=== PATIENT | male | born 1965 | race Caucasian/White ===

== ENCOUNTER 2022-02-22 13:38 | Outpatient (CLI) | payer BC, SELFPAY | END 2022-02-22 13:39 | disposition home or self-care (01) | LOC: WOUND 13:39 | PROVIDERS: Visit Provider Nurse Practitioner Family | DX: Z43.3 Encounter for attention to colostomy (principal); L24.B1 Irritant contact dermatitis related to digestive stoma or fistula; T81.31XA Disruption of external operation (surgical) wound, not elsewhere classified, initial encounter; C20 Malignant neoplasm of rectum | CPT/HCPCS: 97597; 99212 ==

== ENCOUNTER 2022-03-07 11:00 | Outpatient (RCR) | payer BC, SELFPAY ==
[2022-02-19 15:09] LABS: Basophils Absolute Auto 0.04 K/uL (0.00-0.30); Basophils Percent Auto 0.6 % (0.0-3.0); Eosinophils Absolute Auto 0.21 K/uL (0.00-0.50); Hematocrit 40.5 % (37.0-53.0); Hemoglobin* 13.3 gm/dL (13.5-17.5); Immature Granulocytes Abs Auto 0.02 K/uL (0.00-0.30); Lymphocytes Percent Auto 17.3 % (20-44); Mean Corpuscular HGB Conc 33 gm/dL (32-36); Mean Corpuscular Hemoglobin 25 pg (26-34); Mean Corpuscular Volume 76 fL (80-100); Monocytes Percent Auto 16.7 % (0.0-11.0); Neutrophils Absolute Auto 4.42 K/uL (1.7-7.0); Neutrophils Percent Auto 62.1 % (42.0-72.0); Platelet Count* 273 K/uL (140-440); RDW Coefficient of Variation % 16.2 % (11.5-15.5); Red Blood Count 5.36 m/uL (4.30-5.90); White Blood Count* 7.11 K/uL (4.50-11.00)
[2022-02-19 15:21] LABS: Albumin* 4.2 g/dL (3.3-5.0); Chloride* 100 mmol/L (96-114); Potassium* 3.9 mmol/L (3.6-5.1); Sodium* 134 mmol/L (135-149)
[2022-02-19 15:24] LABS: Alanine Aminotransferase* 40 U/L (4-50); Alkaline Phosphatase* 92 U/L (40-150); Aspartate Amino Transferase* 43 U/L (12-35); Bilirubin Total* 1.6 mg/dL (0.1-1.5); Blood Urea Nitrogen* 11 mg/dL (7-30); Carbon Dioxide* 27 mmol/L (20-32); Creatinine* 0.8 mg/dL (0.5-1.5); Estimated Glomerular Filt Rate 102.58; Glucose* 182 mg/dL (60-115); Total Protein* 7.5 g/dL (6.0-8.3)
[2022-02-19 15:25] LABS: Calcium* 9.2 mg/dL (8.4-10.6)
[2022-02-19 22:10] LABS: Slide Review Reflex No
[2022-02-20 08:52] VITALS: BP 123/79; PULSE 93; RESP 16; TEMP 35.9; O2SAT 97
[2022-02-20] MEDS: dexAMETHasone 20 MG in 0.9 % SODIUM CHLORIDE 100 ml 100 ML 408 MG IVPB (10:19)
[2022-02-20] MEDS: PALONOSETRON 0.25 MG/5 ML inj IV (10:19)
[2022-02-22 12:38] VITALS: BP 114/79; PULSE 72; RESP 16; TEMP 36.1; O2SAT 97
[2022-02-22] MEDS: SODIUM CHLORIDE 0.9 % (FLUSH) 10 ML SYRINGE IVF (14:55)
[2022-02-22] MEDS: HEPARIN 500 UNIT/5 ML SYRINGE IVF (14:55)
--- NOTE | 2022-03-01 17:57 | ONC.NURNOTE ---
Authorization: User: Kendra Saucedo Date: 12/28/21 13:02 Type: Eligibility Determination Note... Received request for prior auth for Flourouracil (J9190), Leucovorin (J0640), Oxaliplatin (J9263) and Aloxi (J2469). Per [place], Flourouracil (J9190), Leucovorin (J0640), Oxaliplatin (J9263) hav ebeen approved 12/27/2021-. Auth#[id number] Aloxi is pending additional information. Amendment 1 - Kendra Saucedo - 12/28/21 @ [address] Wing is valid 12/27/2021-08/30/2022 User: Kendra Saucedo Date: 01/01/22 10:39 Type: Eligibility Determination Note... Request for Aloxi (J2469) has been approved from by Theo on behalf of [facility], 12/27/2021-01/02/2023. Max daily units is 10 (25MCG). REf #[id number]
[2022-03-05 08:36] VITALS: BP 124/83; PULSE 73; RESP 16; TEMP 36; O2SAT 98
[2022-03-05 08:54] LABS: Basophils Absolute Auto 0.02 K/uL (0.00-0.30); Basophils Percent Auto 0.4 % (0.0-3.0); Eosinophils Absolute Auto 0.18 K/uL (0.00-0.50); Eosinophils Percent Auto 3.6 % (0.0-7.0); Hemoglobin* 12.8 gm/dL (13.5-17.5); Immature Granulocytes Abs Auto 0.02 K/uL (0.00-0.30); Lymphocytes Absolute Auto 1.28 K/uL (0.90-2.90); Lymphocytes Percent Auto 25.3 % (20-44); Mean Corpuscular HGB Conc 33 gm/dL (32-36); Mean Corpuscular Hemoglobin 25 pg (26-34); Mean Corpuscular Volume 76 fL (80-100); Monocytes Percent Auto 19.2 % (0.0-11.0); Neutrophils Absolute Auto 2.58 K/uL (1.7-7.0); Neutrophils Percent Auto 51.1 % (42.0-72.0); Platelet Count* 202 K/uL (140-440); RDW Coefficient of Variation % 16.8 % (11.5-15.5); Red Blood Count 5.14 m/uL (4.30-5.90); White Blood Count* 5.05 K/uL (4.50-11.00)
[2022-03-05 08:57] LABS: Slide Review Reflex No
[2022-03-05 09:07] LABS: Albumin* 3.8 g/dL (3.3-5.0); Chloride* 102 mmol/L (96-114); Sodium* 133 mmol/L (135-149)
[2022-03-05 09:08] LABS: Potassium* 4.1 mmol/L (3.6-5.1)
[2022-03-05 09:10] LABS: Alkaline Phosphatase* 93 U/L (40-150); Aspartate Amino Transferase* 37 U/L (12-35); Bilirubin Total* 0.8 mg/dL (0.1-1.5); Blood Urea Nitrogen* 10 mg/dL (7-30); Carbon Dioxide* 24 mmol/L (20-32); Creatinine* 0.7 mg/dL (0.5-1.5); Estimated Glomerular Filt Rate 107 ml/min; Glucose* 113 mg/dL (60-115); Total Protein* 6.8 g/dL (6.0-8.3)
[2022-03-05 09:11] LABS: Alanine Aminotransferase* 36 U/L (4-50); Calcium* 8.8 mg/dL (8.4-10.6)
[2022-03-05] MEDS: PALONOSETRON 0.25 MG/5 ML inj IV (09:43)
[2022-03-05] MEDS: SODIUM CHLORIDE 0.9 % (FLUSH) 10 ML SYRINGE IVF (09:43)
[2022-03-05] MEDS: dexAMETHasone 20 MG in 0.9 % SODIUM CHLORIDE 100 ml 100 ML 408 MG IVPB (09:43)
[2022-03-07] MEDS: SODIUM CHLORIDE 0.9 % (FLUSH) 10 ML SYRINGE IVF (11:24)
[2022-03-07 11:25] VITALS: BP 146/78; PULSE 87; RESP 16; TEMP 36.9; O2SAT 97
[2022-03-07] MEDS: HEPARIN 500 UNIT/5 ML SYRINGE IVF (11:25)
== END 2022-03-17 23:59 | disposition home or self-care (01) ==
LOC: CCIC 11:00
PROVIDERS: Clinical Nurse Specialist; PCP Family Medicine; Visit Provider Internal Medicine Hematology & Oncology
DX: C18.9 Malignant neoplasm of colon, unspecified (principal)
CPT/HCPCS: 36415; 36591; 80053; 85025; 96368; 96376; 96413; 96415; 96416; 99211; 99212; 99215; J0640; J1100; J1642; J2469; J7050; J9190; J9263

== ENCOUNTER 2022-03-08 13:46 | Outpatient (CLI) | payer BC, SELFPAY | END 2022-03-08 13:47 | disposition home or self-care (01) | LOC: WOUND 13:47 | PROVIDERS: Visit Provider Nurse Practitioner Family | DX: Z43.3 Encounter for attention to colostomy (principal); L24.B1 Irritant contact dermatitis related to digestive stoma or fistula; T81.31XA Disruption of external operation (surgical) wound, not elsewhere classified, initial encounter | CPT/HCPCS: 99213 ==

== ENCOUNTER 2022-03-15 07:51 | Outpatient (CLI) | payer BC, SELFPAY | END 2022-03-15 07:52 | disposition home or self-care (01) | LOC: WOUND 07:51 | PROVIDERS: Visit Provider Nurse Practitioner Family | DX: Z43.3 Encounter for attention to colostomy (principal); L24.B1 Irritant contact dermatitis related to digestive stoma or fistula; T81.31XA Disruption of external operation (surgical) wound, not elsewhere classified, initial encounter | CPT/HCPCS: 99213 ==

== ENCOUNTER 2022-04-08 08:09 | Outpatient (CLI) | payer BC, SELFPAY ==
--- NOTE | 2022-04-08 09:00 | CRLHL7_ITS ---
For Patients: As a result of the Century Cures Act, medical imaging exams and procedure reports are released immediately into your electronic medical record. You may view this report before your referring provider. If you have questions, please contact your health care provider. Indication: MALIGNANT NEOPLASM OF THE COLON Technique: Postcontrast CT chest, abdomen and pelvis. 117 cc Isovue 370 intravenous contrast. Please note that all CT scans at this facility use dose modulation, iterative reconstruction, and/or weight-based dosing when appropriate to reduce radiation dose to as low as reasonably achievable. Comparison: 01/18/2022, 12/31/2021 Findings: In the chest, no pulmonary nodule. No infiltrate. No edema or effusion. Dependent atelectasis. Right-sided Port-A-Cath. No adenopathy. Mild bilateral gynecomastia. No fracture. In the abdomen, mild fatty infiltration of the liver. No intrahepatic masses. Normal gallbladder and spleen. Normal adrenal glands, pancreas, kidneys and ureters. No suspicious retroperitoneal or mesenteric lymph nodes. Postop changes of midline abdominal incision with small fat filled supraumbilical hernias. A small amount of postoperative fluid is located within the deep subcutaneous incision in the infraumbilical region. Left lower quadrant ostomy. No bowel obstruction. Normal stomach and small bowel. Normal appendix. In the pelvis, the bladder is normal. Prostate not particularly enlarged. No pelvic or inguinal adenopathy. Postop changes of partial colectomy. No fracture. Impression: No evidence of metastatic disease. Please note that all CT scans at this facility use dose modulation, iterative reconstruction, and/or weight-based dosing when appropriate to reduce radiation dose to as low as reasonably achievable. Dictated by Oracio Atkinson MD @ 04/08/2022 12:08:24 PM (Electronically Signed)
== END 2022-04-08 08:10 | disposition home or self-care (01) ==
PROVIDERS: PCP Family Medicine; Visit Provider Clinical Nurse Specialist
DX: C18.9 Malignant neoplasm of colon, unspecified (principal)
CPT/HCPCS: 71260; 74177; Q9967

== ENCOUNTER 2022-04-16 10:56 | Outpatient (CLI) | payer BC, SELFPAY | END 2022-04-16 10:57 | disposition home or self-care (01) | LOC: WOUND 10:56 | PROVIDERS: PCP Family Medicine; Visit Provider Nurse Practitioner Family | DX: Z43.3 Encounter for attention to colostomy (principal); L24.B1 Irritant contact dermatitis related to digestive stoma or fistula | CPT/HCPCS: 99213 ==

== ENCOUNTER 2022-05-03 12:36 | Outpatient (CLI) | payer BC, SELFPAY | END 2022-05-03 12:37 | disposition home or self-care (01) | LOC: WOUND 12:36 | PROVIDERS: PCP Family Medicine; Visit Provider Nurse Practitioner Family | DX: Z43.3 Encounter for attention to colostomy (principal); L02.211 Cutaneous abscess of abdominal wall | CPT/HCPCS: 97597; 99213 ==

== ENCOUNTER 2022-05-24 12:55 | Outpatient (CLI) | payer BC, SELFPAY | END 2022-05-24 12:56 | disposition home or self-care (01) | LOC: WOUND 12:55 | PROVIDERS: PCP Family Medicine; Visit Provider Nurse Practitioner Family | DX: L24.B1 Irritant contact dermatitis related to digestive stoma or fistula (principal); Z43.3 Encounter for attention to colostomy | CPT/HCPCS: 99212 ==

== ENCOUNTER 2022-06-21 12:53 | Outpatient (CLI) | payer BC, SELFPAY | END 2022-06-21 12:54 | disposition home or self-care (01) | LOC: WOUND 12:53 | PROVIDERS: PCP Family Medicine; Visit Provider Nurse Practitioner Family | DX: Z43.3 Encounter for attention to colostomy (principal); C20 Malignant neoplasm of rectum | CPT/HCPCS: 99213 ==

== ENCOUNTER 2022-08-20 09:43 | Outpatient (CLI) | payer BC, SELFPAY ==
--- NOTE | 2022-08-20 10:00 | CRLHL7_ITS ---
For Patients: As a result of the Century Cures Act, medical imaging exams and procedure reports are released immediately into your electronic medical record. You may view this report before your referring provider. If you have questions, please contact your health care provider. INDICATION: Surveillance colon cancer. COMPARISON: CT chest, abdomen and pelvis November 09, 2021, December 31, 2021 and April 08, 2022; CT abdomen and pelvis January 18, 2022. TECHNIQUE: CT chest, abdomen and pelvis with intravenous contrast; coronal and sagittal reformats. FINDINGS: Port-A-Cath in place. No abnormal mediastinal or hilar lymphadenopathy. Normal size cardiac silhouette without any evidence of pericardial effusion. No abnormal intra pulmonary nodular densities are identified. No evidence of pleural effusion or chest wall pathology. No focal hepatic or splenic pathology. No pancreatic pathology. Tiny gallstones. No adrenal pathology. No kidney stones or obstructive uropathy. No retroperitoneal lymphadenopathy. Postop changes sigmoid colon with a colostomy present in the left lower quadrant of the abdomen. No evidence of metastatic disease. Impression: 1. Port-A-Cath in place. 2. Tiny calcified gallstones. 3. Status post colostomy left lower quadrant of the abdomen. 4. Negative CT chest, abdomen and pelvis with intravenous contrast otherwise. Please note that all CT scans at this facility use dose modulation, iterative reconstruction, and/or weight-based dosing when appropriate to reduce radiation dose to as low as reasonably achievable. Dictated by Remedios Warren MD @ 08/20/2022 12:19:15 PM (Electronically Signed)
== END 2022-08-20 09:44 | disposition home or self-care (01) ==
LOC: CT 09:44
PROVIDERS: PCP Family Medicine; Visit Provider Internal Medicine Hematology & Oncology
DX: C18.9 Malignant neoplasm of colon, unspecified (principal); K80.80 Other cholelithiasis without obstruction
CPT/HCPCS: 71260; 74177; Q9967

== ENCOUNTER 2022-08-20 10:30 | Outpatient (RCR) | payer BC, SELFPAY ==
[2022-03-19 08:45] VITALS: BP 125/76; PULSE 81; RESP 16; TEMP 36.3; O2SAT 98
[2022-03-19 09:10] LABS: Chloride* 102 mmol/L (96-114); Potassium* 4.2 mmol/L (3.6-5.1); Sodium* 132 mmol/L (135-149)
[2022-03-19 09:12] LABS: Aspartate Amino Transferase* 46 U/L (12-35); Carbon Dioxide* 26 mmol/L (20-32); Creatinine* 0.7 mg/dL (0.5-1.5); Estimated Glomerular Filt Rate 106 ml/min; Total Protein* 7.6 g/dL (6.0-8.3)
[2022-03-19 09:13] LABS: Alanine Aminotransferase* 42 U/L (4-50); Alkaline Phosphatase* 111 U/L (40-150); Blood Urea Nitrogen* 9 mg/dL (7-30); Calcium* 9.1 mg/dL (8.4-10.6); Glucose* 118 mg/dL (60-115)
[2022-03-19 09:26] LABS: Basophils Absolute Auto 0.04 K/uL (0.00-0.30); Basophils Percent Auto 0.7 % (0.0-3.0); Eosinophils Absolute Auto 0.24 K/uL (0.00-0.50); Eosinophils Percent Auto 4.4 % (0.0-7.0); Hematocrit 40.3 % (37.0-53.0); Hemoglobin* 13.3 gm/dL (13.5-17.5); Immature Granulocytes Abs Auto 0.01 K/uL (0.00-0.30); Lymphocytes Absolute Auto 1.26 K/uL (0.90-2.90); Lymphocytes Percent Auto 22.9 % (20-44); Mean Corpuscular HGB Conc 33 gm/dL (32-36); Mean Corpuscular Hemoglobin 25 pg (26-34); Mean Corpuscular Volume 75 fL (80-100); Monocytes Percent Auto 23.6 % (0.0-11.0); Neutrophils Absolute Auto 2.66 K/uL (1.7-7.0); Neutrophils Percent Auto 48.2 % (42.0-72.0); Platelet Count* 176 K/uL (140-440); RDW Coefficient of Variation % 17.2 % (11.5-15.5); Red Blood Count 5.37 m/uL (4.30-5.90); White Blood Count* 5.51 K/uL (4.50-11.00)
[2022-03-19 09:38] LABS: Slide Review Reflex No
[2022-03-19] MEDS: dexAMETHasone 20 MG in 0.9 % SODIUM CHLORIDE 100 ml 100 ML 408 MG IVPB (10:56)
[2022-03-19] MEDS: PALONOSETRON 0.25 MG/5 ML inj IV (10:57)
[2022-03-20 12:20] LABS: Carcinoembryonic Antigen 0.9 ng/mL (<=3.8)
[2022-03-21 11:52] VITALS: BP 109/73; PULSE 94; RESP 16; TEMP 36.1
--- NOTE | 2022-03-21 15:03 | ONC.NURNOTE ---
Pt here for day 3 pump off. VSS. Pt denies any concerns. When deaccessing port needle, RN noticed 3-4 pimple like areas near port site. When assessing pt for a rash, pt does have a scatter pimple like rash on his back and small amt on abd. Pt states he has had the rash on his abd for quite some time. Clair Rhoades APRN did assess rash and we will continue to monitor. Pt aware he needs to call [facility] staff if rash worsens, becomes painful, or looks infected. Pt verbalized understanding of plan of care.
[2022-04-02 09:23] VITALS: BP 114/81; PULSE 85; RESP 16; TEMP 35.6; O2SAT 95
[2022-04-02 09:56] LABS: Basophils Percent Auto 0.5 % (0.0-3.0); Eosinophils Percent Auto 2.7 % (0.0-7.0); Hematocrit 39.9 % (37.0-53.0); Hemoglobin* 13.4 gm/dL (13.5-17.5); Immature Granulocytes Abs Auto 0.04 K/uL (0.00-0.30); Lymphocytes Percent Auto 22.3 % (20-44); Mean Corpuscular HGB Conc 34 gm/dL (32-36); Mean Corpuscular Hemoglobin 25 pg (26-34); Mean Corpuscular Volume 75 fL (80-100); Neutrophils Percent Auto 52.8 % (42.0-72.0); Platelet Count* 146 K/uL (140-440); RDW Coefficient of Variation % 17.9 % (11.5-15.5); Red Blood Count 5.33 m/uL (4.30-5.90)
[2022-04-02 09:59] LABS: Slide Review Reflex No
[2022-04-02 10:00] LABS: White Blood Count* 6.01 K/uL (4.50-11.00)
[2022-04-02 10:12] LABS: Chloride* 101 mmol/L (96-114); Potassium* 4.2 mmol/L (3.6-5.1); Sodium* 132 mmol/L (135-149)
[2022-04-02 10:14] LABS: Aspartate Amino Transferase* 50 U/L (12-35); Bilirubin Total* 0.9 mg/dL (0.1-1.5); Carbon Dioxide* 26 mmol/L (20-32); Creatinine* 0.7 mg/dL (0.5-1.5); Estimated Glomerular Filt Rate 106 ml/min
[2022-04-02 10:15] LABS: Alanine Aminotransferase* 45 U/L (4-50); Alkaline Phosphatase* 115 U/L (40-150); Blood Urea Nitrogen* 11 mg/dL (7-30); Calcium* 9.3 mg/dL (8.4-10.6); Glucose* 118 mg/dL (60-115); Total Protein* 7.4 g/dL (6.0-8.3)
[2022-04-02] MEDS: PALONOSETRON 0.25 MG/5 ML inj IV (11:17)
[2022-04-02] MEDS: dexAMETHasone 20 MG in 0.9 % SODIUM CHLORIDE 100 ml 100 ML 408 MG IVPB (11:17)
[2022-04-02] MEDS: HEPARIN 500 UNIT/5 ML SYRINGE IVF (13:00)
[2022-04-02] MEDS: SODIUM CHLORIDE 0.9 % (FLUSH) 10 ML SYRINGE IVF (13:00)
[2022-04-02] MEDS: 5 % DEXTROSE 250 ML IV (13:00)
[2022-04-04 12:36] VITALS: BP 118/78; PULSE 84; RESP 16; TEMP 36.3; O2SAT 95
[2022-04-04] MEDS: HEPARIN 500 UNIT/5 ML SYRINGE IVF (12:56)
[2022-04-04] MEDS: SODIUM CHLORIDE 0.9 % (FLUSH) 10 ML SYRINGE IVF (12:56)
[2022-04-08] MEDS: HEPARIN 500 UNIT/5 ML SYRINGE IVF (09:11)
[2022-04-08] MEDS: SODIUM CHLORIDE 0.9 % (FLUSH) 10 ML SYRINGE IVF (09:14)
[2022-04-17 12:34] LABS: Basophils Percent Auto 0.5 % (0.0-3.0); Eosinophils Percent Auto 3.2 % (0.0-7.0); Hematocrit 39.5 % (37.0-53.0); Hemoglobin* 13.2 gm/dL (13.5-17.5); Immature Granulocytes Abs Auto 0.01 K/uL (0.00-0.30); Lymphocytes Percent Auto 27.2 % (20-44); Mean Corpuscular HGB Conc 33 gm/dL (32-36); Mean Corpuscular Hemoglobin 26 pg (26-34); Mean Corpuscular Volume 76 fL (80-100); Monocytes Percent Auto 22.5 % (0.0-11.0); Neutrophils Percent Auto 46.4 % (42.0-72.0); Platelet Count* 144 K/uL (140-440); RDW Coefficient of Variation % 17.7 % (11.5-15.5); Red Blood Count 5.18 m/uL (4.30-5.90); White Blood Count* 4.08 K/uL (4.50-11.00)
[2022-04-17 12:40] LABS: Slide Review Reflex No
[2022-04-17 12:52] LABS: Chloride* 98 mmol/L (96-114); Potassium* 4.1 mmol/L (3.6-5.1); Sodium* 133 mmol/L (135-149)
[2022-04-17 12:54] LABS: Carbon Dioxide* 26 mmol/L (20-32); Creatinine* 0.6 mg/dL (0.5-1.5); Estimated Glomerular Filt Rate 111 ml/min
[2022-04-17 12:55] LABS: Alanine Aminotransferase* 51 U/L (4-50); Alkaline Phosphatase* 131 U/L (40-150); Aspartate Amino Transferase* 55 U/L (12-35); Bilirubin Total* 0.9 mg/dL (0.1-1.5); Blood Urea Nitrogen* 11 mg/dL (7-30); Calcium* 9.3 mg/dL (8.4-10.6); Glucose* 186 mg/dL (60-115); Total Protein* 7.4 g/dL (6.0-8.3)
[2022-04-17] MEDS: dexAMETHasone 20 MG in 0.9 % SODIUM CHLORIDE 100 ml 100 ML 408 MG IVPB (13:54)
[2022-04-17] MEDS: PALONOSETRON 0.25 MG/5 ML inj IV (13:54)
[2022-04-17] MEDS: SODIUM CHLORIDE 0.9 % (FLUSH) 10 ML SYRINGE IVF (14:58)
[2022-04-17] MEDS: 5 % DEXTROSE 250 ML IV (14:58)
[2022-04-17] MEDS: HEPARIN 500 UNIT/5 ML SYRINGE IVF (14:58)
[2022-04-19] MEDS: SODIUM CHLORIDE 0.9 % (FLUSH) 10 ML SYRINGE IVF (15:57)
[2022-04-19] MEDS: HEPARIN 500 UNIT/5 ML SYRINGE IVF (15:57)
[2022-04-19 15:59] VITALS: BP 119/65; PULSE 87; RESP 14; TEMP 36.1; O2SAT 96
[2022-04-30 08:45] VITALS: BP 109/76; PULSE 81; RESP 16; TEMP 35.6; O2SAT 98
[2022-04-30 09:04] LABS: Basophils Percent Auto 0.3 % (0.0-3.0); Eosinophils Percent Auto 3.7 % (0.0-7.0); Hematocrit 37.4 % (37.0-53.0); Hemoglobin* 12.6 gm/dL (13.5-17.5); Immature Granulocytes Abs Auto 0.01 K/uL (0.00-0.30); Lymphocytes Percent Auto 27.6 % (20-44); Mean Corpuscular HGB Conc 34 gm/dL (32-36); Mean Corpuscular Hemoglobin 26 pg (26-34); Mean Corpuscular Volume 77 fL (80-100); Monocytes Percent Auto 23.3 % (0.0-11.0); Neutrophils Percent Auto 44.8 % (42.0-72.0); Platelet Count* 110 K/uL (140-440); RDW Coefficient of Variation % 18.4 % (11.5-15.5); Red Blood Count 4.84 m/uL (4.30-5.90); White Blood Count* 3.52 K/uL (4.50-11.00)
[2022-04-30 09:09] LABS: Slide Review Reflex No
[2022-04-30 09:37] LABS: Albumin* 3.9 g/dL (3.3-5.0); Chloride* 101 mmol/L (96-114)
[2022-04-30 09:38] LABS: Sodium* 132 mmol/L (135-149)
[2022-04-30 09:40] LABS: Alkaline Phosphatase* 139 U/L (40-150); Aspartate Amino Transferase* 65 U/L (12-35); Bilirubin Total* 1.1 mg/dL (0.1-1.5); Carbon Dioxide* 23 mmol/L (20-32); Creatinine* 0.6 mg/dL (0.5-1.5); Estimated Glomerular Filt Rate 111 ml/min; Total Protein* 7.2 g/dL (6.0-8.3)
[2022-04-30 09:41] LABS: Alanine Aminotransferase* 55 U/L (4-50); Blood Urea Nitrogen* 9 mg/dL (7-30); Calcium* 8.9 mg/dL (8.4-10.6); Glucose* 183 mg/dL (60-115)
[2022-04-30] MEDS: 5 % DEXTROSE 250 ML IV (10:02)
[2022-04-30] MEDS: SODIUM CHLORIDE 0.9 % (FLUSH) 10 ML SYRINGE IVF (10:02)
[2022-04-30] MEDS: PALONOSETRON 0.25 MG/5 ML inj IV (10:02)
[2022-04-30] MEDS: dexAMETHasone 20 MG in 0.9 % SODIUM CHLORIDE 100 ml 100 ML 408 MG IVPB (10:17)
[2022-05-02 12:00] VITALS: BP 108/75; PULSE 84; RESP 16; TEMP 36.3; O2SAT 96
[2022-05-02] MEDS: SODIUM CHLORIDE 0.9 % (FLUSH) 10 ML SYRINGE IVF (12:02)
[2022-05-02] MEDS: HEPARIN 500 UNIT/5 ML SYRINGE IVF (12:02)
[2022-05-13 10:32] LABS: PSA Diagnostic* 2.56 ng/mL (0.10-4.00)
[2022-05-13] MEDS: SODIUM CHLORIDE 0.9 % (FLUSH) 10 ML SYRINGE IVF (10:34)
[2022-05-13] MEDS: HEPARIN 500 UNIT/5 ML SYRINGE IVF (10:35)
--- NOTE | 2022-05-16 10:17 | ONC.NURNOTE ---
Capecitabine tabs #120 delivered to patient [facility] $0 copay PA completed with coverage 05/08/22-05/08/23
[2022-05-16 10:54] LABS: Basophils Percent Auto 0.5 % (0.0-3.0); Eosinophils Percent Auto 3.5 % (0.0-7.0); Hematocrit 40.3 % (37.0-53.0); Hemoglobin* 13.6 gm/dL (13.5-17.5); Immature Granulocytes Abs Auto 0.01 K/uL (0.00-0.30); Lymphocytes Percent Auto 33.1 % (20-44); Mean Corpuscular HGB Conc 34 gm/dL (32-36); Mean Corpuscular Hemoglobin 27 pg (26-34); Mean Corpuscular Volume 78 fL (80-100); Neutrophils Percent Auto 36.6 % (42.0-72.0); Platelet Count* 139 K/uL (140-440); RDW Coefficient of Variation % 18.5 % (11.5-15.5); Red Blood Count 5.14 m/uL (4.30-5.90); White Blood Count* 3.69 K/uL (4.50-11.00)
[2022-05-16 10:55] LABS: Slide Review Reflex No
[2022-05-16 11:00] LABS: Albumin* 4.2 g/dL (3.3-5.0)
[2022-05-16 11:01] LABS: Chloride* 100 mmol/L (96-114); Potassium* 4.2 mmol/L (3.6-5.1); Sodium* 132 mmol/L (135-149)
[2022-05-16 11:03] LABS: Bilirubin Total* 1.6 mg/dL (0.1-1.5); Creatinine* 0.6 mg/dL (0.5-1.5); Estimated Glomerular Filt Rate 111 ml/min
[2022-05-16 11:04] LABS: Alanine Aminotransferase* 49 U/L (4-50); Alkaline Phosphatase* 145 U/L (40-150); Aspartate Amino Transferase* 54 U/L (12-35); Blood Urea Nitrogen* 11 mg/dL (7-30); Calcium* 9.3 mg/dL (8.4-10.6); Carbon Dioxide* 22 mmol/L (20-32); Glucose* 200 mg/dL (60-115); Total Protein* 7.7 g/dL (6.0-8.3)
--- NOTE | 2022-05-16 11:09 | ONC.NURNOTE ---
Capecitabine teaching reviewed possible side effects- call if mouth sores, increase in frequency and volume of stools, tenderness in hands and feet reviewed safe handling/disposal dose schedule discussed interaction with omeprazole and to not take at the same time, patient currently not using the omeprazole discussed need for weekly labs and provider follow up
[2022-05-22 09:28] LABS: Basophils Percent Auto 0.3 % (0.0-3.0); Hematocrit 37.5 % (37.0-53.0); Hemoglobin* 12.7 gm/dL (13.5-17.5); Immature Granulocytes Abs Auto 0.03 K/uL (0.00-0.30); Lymphocytes Percent Auto 21.6 % (20-44); Mean Corpuscular HGB Conc 34 gm/dL (32-36); Mean Corpuscular Hemoglobin 27 pg (26-34); Mean Corpuscular Volume 80 fL (80-100); Monocytes Percent Auto 24.4 % (0.0-11.0); Neutrophils Percent Auto 49.9 % (42.0-72.0); Platelet Count* 154 K/uL (140-440); RDW Coefficient of Variation % 18.6 % (11.5-15.5); Red Blood Count 4.67 m/uL (4.30-5.90); White Blood Count* 3.98 K/uL (4.50-11.00)
[2022-05-22 09:44] LABS: Chloride* 98 mmol/L (96-114)
[2022-05-22 09:45] LABS: Potassium* 3.9 mmol/L (3.6-5.1); Sodium* 130 mmol/L (135-149)
[2022-05-22 09:47] LABS: Aspartate Amino Transferase* 51 U/L (12-35); Bilirubin Total* 1.8 mg/dL (0.1-1.5); Carbon Dioxide* 24 mmol/L (20-32); Creatinine* 0.5 mg/dL (0.5-1.5); Estimated Glomerular Filt Rate 117 ml/min; Total Protein* 7.4 g/dL (6.0-8.3)
[2022-05-22 09:48] LABS: Alanine Aminotransferase* 46 U/L (4-50); Alkaline Phosphatase* 139 U/L (40-150); Blood Urea Nitrogen* 8 mg/dL (7-30); Glucose* 144 mg/dL (60-115)
[2022-05-22 09:52] LABS: Slide Review Reflex No
[2022-05-22] MEDS: SODIUM CHLORIDE 0.9 % (FLUSH) 10 ML SYRINGE IVF (12:34)
[2022-05-22] MEDS: HEPARIN 500 UNIT/5 ML SYRINGE IVF (12:34)
--- NOTE | 2022-05-22 12:55 | ONC.NURNOTE ---
patient states doing well after starting po chemo. stool normal in ostomy. denies discomfort or nausea
--- NOTE | 2022-05-22 16:38 | ONC.NURNOTE ---
Patient called after Dr. ocampo reviewed labs. Patient told to increase sodium ie salt food etc. Also noted was bilirubin elevating-Patient denies alcohol use and doesn't use Tylenol. Can't think of anything that would be causing this and just started oral capecitabine 3 days ago. Due for labs in 7 day
--- NOTE | 2022-05-24 12:18 | ONC.NURNOTE ---
Capecitabine follow up call reports softer stools but no change in frequency and continue to be formed no mouth sores or hand/foot redness or pain labs scheduled for weekly and will connect with patient again next week
[2022-05-29 10:07] LABS: Basophils Percent Auto 0.8 % (0.0-3.0); Eosinophils Percent Auto 3.4 % (0.0-7.0); Hematocrit 37.3 % (37.0-53.0); Hemoglobin* 12.8 gm/dL (13.5-17.5); Immature Granulocytes Abs Auto 0.02 K/uL (0.00-0.30); Lymphocytes Percent Auto 16.1 % (20-44); Mean Corpuscular HGB Conc 34 gm/dL (32-36); Mean Corpuscular Hemoglobin 28 pg (26-34); Mean Corpuscular Volume 80 fL (80-100); Monocytes Percent Auto 19.7 % (0.0-11.0); Neutrophils Percent Auto 59.4 % (42.0-72.0); Platelet Count* 128 K/uL (140-440); RDW Coefficient of Variation % 18.7 % (11.5-15.5); Red Blood Count 4.64 m/uL (4.30-5.90); White Blood Count* 3.55 K/uL (4.50-11.00)
[2022-05-29 10:10] LABS: Slide Review Reflex No
[2022-05-29 10:20] LABS: Chloride* 100 mmol/L (96-114); Sodium* 132 mmol/L (135-149)
[2022-05-29 10:22] LABS: Creatinine* 0.5 mg/dL (0.5-1.5); Estimated Glomerular Filt Rate 117 ml/min
[2022-05-29 10:23] LABS: Alanine Aminotransferase* 45 U/L (4-50); Alkaline Phosphatase* 121 U/L (40-150); Aspartate Amino Transferase* 52 U/L (12-35); Bilirubin Total* 1.7 mg/dL (0.1-1.5); Blood Urea Nitrogen* 8 mg/dL (7-30); Carbon Dioxide* 22 mmol/L (20-32); Glucose* 134 mg/dL (60-115); Total Protein* 7.2 g/dL (6.0-8.3)
[2022-05-29 10:24] LABS: Calcium* 9.2 mg/dL (8.4-10.6)
--- NOTE | 2022-05-29 14:45 | ONC.NURNOTE ---
Labs reviewed by Dr Guerra and called to [facility] patient was advised by Dr Reyna to start with 1 imodium/day to help managing increasing diarrhea, increase dose if one is not managing the diarrhea reports one more watery stool/day over baseline
[2022-06-05 09:45] VITALS: BP 109/73; PULSE 91; RESP 16; TEMP 36.6; O2SAT 99
[2022-06-05 09:46] LABS: Basophils Percent Auto 0.6 % (0.0-3.0); Eosinophils Percent Auto 6.9 % (0.0-7.0); Hematocrit 35.5 % (37.0-53.0); Immature Granulocytes Abs Auto 0.01 K/uL (0.00-0.30); Lymphocytes Percent Auto 13.7 % (20-44); Mean Corpuscular HGB Conc 34 gm/dL (32-36); Mean Corpuscular Hemoglobin 28 pg (26-34); Mean Corpuscular Volume 83 fL (80-100); Monocytes Percent Auto 17.9 % (0.0-11.0); Neutrophils Percent Auto 60.6 % (42.0-72.0); Platelet Count* 106 K/uL (140-440); RDW Coefficient of Variation % 18.8 % (11.5-15.5); White Blood Count* 3.35 K/uL (4.50-11.00)
[2022-06-05 09:47] LABS: Slide Review Reflex No
[2022-06-05 09:53] LABS: Albumin* 3.8 g/dL (3.3-5.0); Chloride* 101 mmol/L (96-114)
[2022-06-05 09:54] LABS: Potassium* 4.4 mmol/L (3.6-5.1); Sodium* 131 mmol/L (135-149)
[2022-06-05 09:56] LABS: Alkaline Phosphatase* 101 U/L (40-150); Aspartate Amino Transferase* 46 U/L (12-35); Bilirubin Total* 1.4 mg/dL (0.1-1.5); Blood Urea Nitrogen* 12 mg/dL (7-30); Carbon Dioxide* 24 mmol/L (20-32); Creatinine* 0.6 mg/dL (0.5-1.5); Estimated Glomerular Filt Rate 111 ml/min; Total Protein* 6.8 g/dL (6.0-8.3)
[2022-06-05 09:57] LABS: Alanine Aminotransferase* 43 U/L (4-50); Calcium* 8.9 mg/dL (8.4-10.6); Glucose* 158 mg/dL (60-115)
[2022-06-12 09:50] LABS: Basophils Percent Auto 0.3 % (0.0-3.0); Eosinophils Percent Auto 6.8 % (0.0-7.0); Hematocrit 33.7 % (37.0-53.0); Hemoglobin* 11.5 gm/dL (13.5-17.5); Immature Granulocytes Abs Auto 0.03 K/uL (0.00-0.30); Lymphocytes Percent Auto 10.2 % (20-44); Mean Corpuscular HGB Conc 34 gm/dL (32-36); Mean Corpuscular Hemoglobin 28 pg (26-34); Mean Corpuscular Volume 83 fL (80-100); Monocytes Percent Auto 20.6 % (0.0-11.0); Neutrophils Percent Auto 61.2 % (42.0-72.0); Platelet Count* 112 K/uL (140-440); RDW Coefficient of Variation % 19.1 % (11.5-15.5); Red Blood Count 4.05 m/uL (4.30-5.90); White Blood Count* 3.25 K/uL (4.50-11.00)
[2022-06-12 09:56] LABS: Slide Review Reflex No
[2022-06-12 10:12] LABS: Albumin* 3.9 g/dL (3.3-5.0); Chloride* 100 mmol/L (96-114); Sodium* 132 mmol/L (135-149)
[2022-06-12 10:13] LABS: Potassium* 3.9 mmol/L (3.6-5.1)
[2022-06-12 10:15] LABS: Alanine Aminotransferase* 44 U/L (4-50); Alkaline Phosphatase* 100 U/L (40-150); Aspartate Amino Transferase* 43 U/L (12-35); Bilirubin Total* 1.6 mg/dL (0.1-1.5); Blood Urea Nitrogen* 12 mg/dL (7-30); Carbon Dioxide* 22 mmol/L (20-32); Creatinine* 0.7 mg/dL (0.5-1.5); Estimated Glomerular Filt Rate 106 ml/min; Glucose* 163 mg/dL (60-115); Total Protein* 6.6 g/dL (6.0-8.3)
[2022-06-12 10:16] LABS: Calcium* 8.4 mg/dL (8.4-10.6)
[2022-06-12] MEDS: HEPARIN 500 UNIT/5 ML SYRINGE IVF (13:17)
[2022-06-12] MEDS: SODIUM CHLORIDE 0.9 % (FLUSH) 10 ML SYRINGE IVF (13:17)
[2022-06-13 13:15] LABS: Carcinoembryonic Antigen 0.9 ng/mL (<=3.8)
[2022-06-19 09:27] LABS: Basophils Percent Auto 0.3 % (0.0-3.0); Eosinophils Percent Auto 5.5 % (0.0-7.0); Hematocrit 33.2 % (37.0-53.0); Hemoglobin* 11.4 gm/dL (13.5-17.5); Immature Granulocytes Abs Auto 0.04 K/uL (0.00-0.30); Lymphocytes Percent Auto 8.9 % (20-44); Mean Corpuscular HGB Conc 34 gm/dL (32-36); Mean Corpuscular Hemoglobin 29 pg (26-34); Mean Corpuscular Volume 84 fL (80-100); Monocytes Percent Auto 21.8 % (0.0-11.0); Neutrophils Percent Auto 62.1 % (42.0-72.0); Platelet Count* 120 K/uL (140-440); RDW Coefficient of Variation % 19.7 % (11.5-15.5); Red Blood Count 3.96 m/uL (4.30-5.90)
[2022-06-19 09:38] LABS: Slide Review Reflex No
[2022-06-19 09:46] LABS: Albumin* 3.9 g/dL (3.3-5.0); Chloride* 101 mmol/L (96-114)
[2022-06-19 09:47] LABS: Potassium* 4.1 mmol/L (3.6-5.1); Sodium* 133 mmol/L (135-149)
[2022-06-19 09:49] LABS: Bilirubin Total* 1.9 mg/dL (0.1-1.5); Creatinine* 0.7 mg/dL (0.5-1.5); Estimated Glomerular Filt Rate 106 ml/min
[2022-06-19 09:50] LABS: Alanine Aminotransferase* 42 U/L (4-50); Alkaline Phosphatase* 84 U/L (40-150); Aspartate Amino Transferase* 43 U/L (12-35); Blood Urea Nitrogen* 12 mg/dL (7-30); Carbon Dioxide* 24 mmol/L (20-32); Glucose* 127 mg/dL (60-115); Total Protein* 6.8 g/dL (6.0-8.3)
[2022-06-19 09:51] LABS: Calcium* 8.6 mg/dL (8.4-10.6)
[2022-06-19 10:44] LABS: White Blood Count* 2.93 K/uL (4.50-11.00)
[2022-06-19] MEDS: HEPARIN 500 UNIT/5 ML SYRINGE IVF (11:09)
[2022-06-19] MEDS: SODIUM CHLORIDE 0.9 % (FLUSH) 10 ML SYRINGE IVF (11:10)
--- NOTE | 2022-07-01 12:30 | ONC.NURNOTE ---
Study Manager called post chemo follow up with capecitabine- states that he is recovering, continues with one extra stool per day, some are thin, some are baseline no concerns with diet and hydration discussed follow up- not yet scheduled has an appt with Dr Sepulveda at [facility] on 07/08 next available set up with Dr Guerra in July
[2022-07-31 09:33] LABS: Basophils Absolute Auto 0.03 K/uL (0.00-0.30); Basophils Percent Auto 0.6 % (0.0-3.0); Hematocrit 35.6 % (37.0-53.0); Hemoglobin* 12.2 gm/dL (13.5-17.5); Immature Granulocytes Abs Auto 0.04 K/uL (0.00-0.30); Immature Granulocytes Pct Auto 0.8 %; Lymphocytes Percent Auto 9.7 % (20-44); Mean Corpuscular HGB Conc 34 gm/dL (32-36); Mean Corpuscular Hemoglobin 30 pg (26-34); Mean Corpuscular Volume 88 fL (80-100); Monocytes Percent Auto 14.9 % (0.0-11.0); Neutrophils Absolute Auto 2.94 K/uL (1.7-7.0); Platelet Count* 182 K/uL (140-440); RDW Coefficient of Variation % 15.2 % (11.5-15.5); Red Blood Count 4.07 m/uL (4.30-5.90); White Blood Count* 4.83 K/uL (4.50-11.00)
[2022-07-31 09:36] LABS: Slide Review Reflex No
[2022-07-31 09:57] LABS: Chloride* 104 mmol/L (96-114)
[2022-07-31 09:58] LABS: Albumin* 4.1 g/dL (3.3-5.0); Potassium* 4.3 mmol/L (3.6-5.1); Sodium* 136 mmol/L (135-149)
[2022-07-31 10:00] LABS: Creatinine* 0.7 mg/dL (0.5-1.5); Estimated Glomerular Filt Rate 106 ml/min
[2022-07-31 10:01] LABS: Alanine Aminotransferase* 31 U/L (4-50); Alkaline Phosphatase* 85 U/L (40-150); Aspartate Amino Transferase* 32 U/L (12-35); Bilirubin Total* 1.5 mg/dL (0.1-1.5); Blood Urea Nitrogen* 15 mg/dL (7-30); Carbon Dioxide* 27 mmol/L (20-32); Glucose* 134 mg/dL (60-115)
--- NOTE | 2022-08-02 11:08 | ONC.NURNOTE ---
Patient called to let us know that his surgery with Dr. Sepulveda is September 12 at 0530 am He also let us know he has a CT scheduled for August 20. Patient due for Ct and labs after surgery
[2022-08-20] MEDS: HEPARIN 500 UNIT/5 ML SYRINGE IVF (11:16)
[2022-08-20] MEDS: SODIUM CHLORIDE 0.9 % (FLUSH) 10 ML SYRINGE IVF (11:17)
== END 2022-09-15 23:59 | disposition home or self-care (01) ==
LOC: CCIC 10:30
PROVIDERS: Clinical Nurse Specialist; PCP Family Medicine; Referring Provider Family Medicine; Visit Provider Internal Medicine Hematology & Oncology
DX: C19 Malignant neoplasm of rectosigmoid junction (principal); Z93.3 Colostomy status
CPT/HCPCS: 36415; 36591; 80053; 82378; 82565; 84153; 85025; 96368; 96376; 96377; 96411; 96413; 96415; 96416; 99211; 99212; 99214; 99215; J0640; J1100; J1642; J2469; J7050; J9190; J9263

== ENCOUNTER 2022-10-14 15:00 | Outpatient (RCR) | payer BC, SELFPAY ==
[2022-10-04 10:39] LABS: Basophils Absolute Auto 0.01 K/uL (0.00-0.30); Basophils Percent Auto 0.1 % (0.0-3.0); Eosinophils Absolute Auto 0.37 K/uL (0.00-0.50); Eosinophils Percent Auto 4.5 % (0.0-7.0); Hemoglobin* 11.7 gm/dL (13.5-17.5); Immature Granulocytes Abs Auto 0.17 K/uL (0.00-0.30); Immature Granulocytes Pct Auto 2.1 %; Mean Corpuscular HGB Conc 34 gm/dL (32-36); Mean Corpuscular Hemoglobin 29 pg (26-34); Mean Corpuscular Volume 83 fL (80-100); Monocytes Percent Auto 9.1 % (0.0-11.0); Neutrophils Percent Auto 77.2 % (42.0-72.0); Platelet Count* 293 K/uL (140-440); RDW Coefficient of Variation % 12.4 % (11.5-15.5); Red Blood Count 4.09 m/uL (4.30-5.90); White Blood Count* 8.28 K/uL (4.50-11.00)
[2022-10-04 11:03] LABS: Slide Review Reflex No
[2022-10-04 11:53] LABS: Chloride* 96 mmol/L (96-114); Potassium* 4.6 mmol/L (3.6-5.1); Sodium* 128 mmol/L (135-149)
[2022-10-04 11:55] LABS: Creatinine* 0.7 mg/dL (0.5-1.5); Estimated Glomerular Filt Rate 106 ml/min
[2022-10-04 11:56] LABS: Alanine Aminotransferase* 59 U/L (4-50); Alkaline Phosphatase* 171 U/L (40-150); Aspartate Amino Transferase* 30 U/L (12-35); Blood Urea Nitrogen* 13 mg/dL (7-30); Calcium* 9.2 mg/dL (8.4-10.6); Carbon Dioxide* 25 mmol/L (20-32); Glucose* 125 mg/dL (60-115); Total Protein* 7.6 g/dL (6.0-8.3)
[2022-10-05 13:55] LABS: Carcinoembryonic Antigen <0.6 ng/mL (<=3.8)
== END 2023-04-02 23:59 | disposition home or self-care (01) ==
LOC: CCIC 15:00
PROVIDERS: Internal Medicine Hematology & Oncology; PCP Family Medicine; Referring Provider Family Medicine; Visit Provider Internal Medicine Medical Oncology
DX: C19 Malignant neoplasm of rectosigmoid junction (principal); Z93.3 Colostomy status
CPT/HCPCS: 36415; 80053; 82378; 85025; 99212; 99214

== ENCOUNTER 2023-04-07 07:32 | Outpatient (CLI) | payer BC, SELFPAY ==
--- NOTE | 2023-04-07 08:00 | CRLHL7_ITS ---
For Patients: As a result of the Century Cures Act, medical imaging exams and procedure reports are released immediately into your electronic medical record. You may view this report before your referring provider. If you have questions, please contact your health care provider. INDICATION: Adenocarcinoma of the colon. Takedown ostomy September 2022. Prior sigmoidectomy, and Port-A-Cath placement. TECHNIQUE: Contrast-enhanced CT of the chest abdomen and pelvis. 120 cc nonionic Isovue-370 administered. COMPARISON : August 20, 2022. FINDINGS: CT chest: Right-sided Port-A-Cath with lead tip in the low superior vena cava. Clear lungs. No pneumothoraces nodules or infiltrates. No pleural or pericardial effusions. No thoracic lymphadenopathy. Vascular calcification in the at the aortic valve plane. CT of the abdomen and pelvis: The liver, spleen, pancreas, adrenal glands, and kidneys are within normal limits. There may be a very tiny stone in the gallbladder image 166 series 2. Normal caliber abdominal aorta and iliac arteries. Normal inferior vena cava. No ascites. No abdominal pelvic lymphadenopathy. Postsurgical change from a left lower quadrant colostomy takedown. There is a hernia containing bowel loops without incarceration. Please see for example image 211 series 2. Postsurgical change from a sigmoidectomy and reanastomosis. Presacral soft tissue thickening likely postsurgical and post treatment in nature. The soft tissue thickening has increased somewhat compared to August 20, 2022. This could still be postsurgical and/or post treatment in nature but should be monitored. The urinary bladder, prostate gland, and seminal vesicles are within normal limits. Minor sclerosis of the sacrum potentially post treatment in nature. This could be related to radiation therapy in the proper clinical setting. The skeleton is otherwise unremarkable. IMPRESSION: 1. No evidence for metastatic disease. 2. Takedown of a left lower quadrant ostomy. Left lower quadrant hernia containing bowel without incarceration. 3. Thickening of the presacral soft tissues likely postsurgical/post treatment in nature. This can be followed. 4. Mild sclerosis of the sacrum possibly post treatment in nature. 5. Questionable tiny gallstone versus polyp. Please note that all CT scans at this facility use dose modulation, iterative reconstruction, and/or weight-based dosing when appropriate to reduce radiation dose to as low as reasonably achievable. Dictated by Dru Petit MD @ 04/07/2023 10:49:37 AM (Electronically Signed)
[2023-04-07 08:25] LABS: Creatinine* 0.8 mg/dL (0.5-1.5); Estimated Glomerular Filt Rate 101 ml/min
== END 2023-04-07 07:33 | disposition home or self-care (01) ==
LOC: CT 07:33
PROVIDERS: PCP Family Medicine; Visit Provider Internal Medicine Medical Oncology
DX: C18.9 Malignant neoplasm of colon, unspecified (principal); K46.9 Unspecified abdominal hernia without obstruction or gangrene; G95.89 Other specified diseases of spinal cord
CPT/HCPCS: 36415; 71260; 74177; 82565; 99211; Q9967

== ENCOUNTER 2023-08-12 07:43 | Outpatient (CLI) | payer BC, SELFPAY ==
--- NOTE | 2023-08-12 08:00 | CRLHL7_ITS ---
For Patients: As a result of the Century Cures Act, medical imaging exams and procedure reports are released immediately into your electronic medical record. You may view this report before your referring provider. If you have questions, please contact your health care provider. Indication: MALIGNANT NEOPLASM OF COLON Technique: CT Chest/Abd/Pelvis W/ 115CC ISOVUE-370 Please note that all CT scans at this facility use dose modulation, iterative reconstruction, and/or weight-based dosing when appropriate to reduce radiation dose to as low as reasonably achievable. Comparison: 04/07/2023 Findings: In the chest, right-sided Port-A-Cath is present. Visualized thyroid normal. No mediastinal, hilar or axillary lymph nodes. Minimal bilateral subareolar gynecomastia. No infiltrate or edema. No effusion or pneumothorax. Mild dependent atelectasis bilaterally. No suspicious pulmonary nodule. No vertebral body compression fracture. In the abdomen, interval development of subtle low density within the posterior segment of the right hepatic lobe measuring approximately 4.5 cm, series 11, images 21-30. The gallbladder is normal. No biliary duct dilation. No calcified gallstones. Normal pancreas. Spleen is normal. Small hiatal hernia is present. Stable tiny lymph nodes at the GE junction. Mild vascular calcifications. No enlarged retroperitoneal or mesenteric lymph nodes. The stomach is normal. Normal duodenum. Left abdominal wall hernia defect containing loops of small bowel measuring 6.5 cm. Weakening of the ventral abdominal wall noted at the level of the umbilicus with a small left paramidline fat filled hernia. The kidneys are normal. Normal adrenal glands. In the pelvis, mild degenerative changes are present. There is no vertebral body compression fracture or suspicious osseous lesion. Postoperative changes of low anterior colonic resection again noted with fullness of the presacral fat. A few scattered perirectal lymph nodes are similar along with a small left posterior lateral bladder diverticulum. The appendix is normal. No large bowel obstruction. Impression: Interval development of a subtle ill-defined lesion in the posterior segment of the right hepatic lobe measuring approximately 4.5 cm worrisome for metastatic disease. Stable postop changes of low anterior colonic resection with stable tiny adjacent lymph nodes in the perirectal fat and fullness of the presacral soft tissues. Unchanged left-sided abdominal wall hernia containing loops of small bowel. No bowel obstruction. Stable appearance of the periumbilical soft tissues. No suspicious pulmonary nodule. Stable appearance of the gallbladder. No biliary obstruction. Also stable appearance of the right side of the sacrum. Please note that all CT scans at this facility use dose modulation, iterative reconstruction, and/or weight-based dosing when appropriate to reduce radiation dose to as low as reasonably achievable. Dictated by Oracio Atkinson MD @ 08/12/2023 11:39:21 AM (Electronically Signed)
== END 2023-08-12 07:44 | disposition home or self-care (01) ==
LOC: CT 07:44
PROVIDERS: PCP Family Medicine; Visit Provider Internal Medicine Hematology & Oncology
DX: C18.9 Malignant neoplasm of colon, unspecified (principal); K43.9 Ventral hernia without obstruction or gangrene; K76.9 Liver disease, unspecified
CPT/HCPCS: 71260; 74177; Q9967

== ENCOUNTER 2023-09-03 12:44 | Outpatient (CLI) | payer BC, SELFPAY ==
--- NOTE | 2023-09-03 13:00 | CRLHL7_ITS ---
For Patients: As a result of the Century Cures Act, medical imaging exams and procedure reports are released immediately into your electronic medical record. You may view this report before your referring provider. If you have questions, please contact your health care provider. INDICATION: Colon carcinoma. Suspicious lesion on CT scan. TECHNIQUE: Abdominal MRI. T1-T2 postcontrast T1 diffusion weighted imaging. Contrast: 20 cc intravenous gadolinium. COMPARISON: CT scan abdomen 08/12/2023. FINDINGS: Liver: 4.3 cm posterior lesion segment VII/. This has heterogeneous increased T2 signal. Decreased T1 signal and areas of irregular internal gadolinium enhancement. Knees in is well-visualized postcontrast on series 17, image 32. No other suspicious liver lesions. The liver morphology is non cirrhotic. The gallbladder is contracted. The biliary tree is normal caliber. Miscellaneous abdomen: Spleen adrenal glands pancreas kidneys show no additional abnormality. Small accessory splenule. Diastasis of the rectus abdominis muscles. IMPRESSION: 4.3 cm lesion segment VII of the liver suspicious for metastatic disease. Dictated by Shree Casey MD @ 09/18/2023 8:49:26 AM (Electronically Signed)
== END 2023-09-03 12:45 | disposition home or self-care (01) ==
LOC: MRI 12:46
PROVIDERS: PCP Family Medicine; Visit Provider Internal Medicine Hematology & Oncology
DX: C18.9 Malignant neoplasm of colon, unspecified (principal)
CPT/HCPCS: 74183; A9575

== ENCOUNTER 2023-10-03 13:00 | Outpatient (RCR) | payer BC, SELFPAY ==
[2023-04-08 14:45] LABS: Basophils Absolute Auto 0.02 K/uL (0.00-0.30); Basophils Percent Auto 0.4 % (0.0-3.0); Eosinophils Absolute Auto 0.18 K/uL (0.00-0.50); Eosinophils Percent Auto 3.2 % (0.0-7.0); Hematocrit 36.5 % (37.0-53.0); Hemoglobin* 12.4 gm/dL (13.5-17.5); Immature Granulocytes Abs Auto 0.05 K/uL (0.00-0.30); Immature Granulocytes Pct Auto 0.9 %; Lymphocytes Percent Auto 14.2 % (20-44); Mean Corpuscular HGB Conc 34 gm/dL (32-36); Mean Corpuscular Hemoglobin 28 pg (26-34); Mean Corpuscular Volume 83 fL (80-100); Monocytes Percent Auto 11.8 % (0.0-11.0); Neutrophils Absolute Auto 3.88 K/uL (1.7-7.0); Neutrophils Percent Auto 69.5 % (42.0-72.0); Platelet Count* 256 K/uL (140-440); Red Blood Count 4.41 m/uL (4.30-5.90); White Blood Count* 5.58 K/uL (4.50-11.00)
[2023-04-08 15:03] LABS: Slide Review Reflex No
[2023-04-08 15:07] LABS: Albumin* 4.3 g/dL (3.3-5.0)
[2023-04-08 15:08] LABS: Chloride* 101 mmol/L (96-114); Potassium* 4.2 mmol/L (3.6-5.1)
[2023-04-08 15:10] LABS: Aspartate Amino Transferase* 28 U/L (12-35); Bilirubin Total* 1.6 mg/dL (0.1-1.5); Carbon Dioxide* 25 mmol/L (20-32); Estimated Glomerular Filt Rate 86 ml/min; Total Protein* 7.4 g/dL (6.0-8.3)
[2023-04-08 15:11] LABS: Alanine Aminotransferase* 30 U/L (4-50); Alkaline Phosphatase* 85 U/L (40-150); Blood Urea Nitrogen* 24 mg/dL (7-30); Glucose* 103 mg/dL (60-115)
[2023-04-08 15:18] LABS: Anion Gap 9 mEq/L (7-15); Sodium* 135 mmol/L (135-149)
[2023-04-11 05:40] LABS: Carcinoembryonic Antigen <0.6 ng/mL (<=3.8)
[2023-04-11 14:01] LABS: Calcium* 9.3 mg/dL (8.4-10.6)
[2023-07-31] MEDS: HEPARIN 500 UNIT/5 ML SYRINGE IVF (08:13)
[2023-07-31] MEDS: SODIUM CHLORIDE 0.9 % (FLUSH) 10 ML SYRINGE IVF (08:13)
[2023-08-12 08:02] LABS: Basophils Absolute Auto 0.02 K/uL (0.00-0.30); Basophils Percent Auto 0.3 % (0.0-3.0); Eosinophils Absolute Auto 0.23 K/uL (0.00-0.50); Eosinophils Percent Auto 3.5 % (0.0-7.0); Immature Granulocytes Abs Auto 0.05 K/uL (0.00-0.30); Immature Granulocytes Pct Auto 0.8 %; Lymphocytes Percent Auto 11.8 % (20-44); Mean Corpuscular HGB Conc 34 gm/dL (32-36); Mean Corpuscular Hemoglobin 28 pg (26-34); Mean Corpuscular Volume 83 fL (80-100); Monocytes Percent Auto 12.4 % (0.0-11.0); Neutrophils Absolute Auto 4.63 K/uL (1.7-7.0); Neutrophils Percent Auto 71.2 % (42.0-72.0); Platelet Count* 270 K/uL (140-440); RDW Coefficient of Variation % 13.1 % (11.5-15.5); White Blood Count* 6.51 K/uL (4.50-11.00)
[2023-08-12 08:09] LABS: Slide Review Reflex No
[2023-08-12 08:15] LABS: Albumin* 4.3 g/dL (3.3-5.0)
[2023-08-12 08:16] LABS: Chloride* 100 mmol/L (96-114); Potassium* 4.3 mmol/L (3.6-5.1); Sodium* 132 mmol/L (135-149)
[2023-08-12 08:18] LABS: Anion Gap 8 mEq/L (7-15); Bilirubin Total* 1.3 mg/dL (0.1-1.5); Carbon Dioxide* 24 mmol/L (20-32); Creatinine* 0.7 mg/dL (0.5-1.5); Estimated Glomerular Filt Rate 105 ml/min
[2023-08-12 08:19] LABS: Alanine Aminotransferase* 27 U/L (4-50); Alkaline Phosphatase* 87 U/L (40-150); Aspartate Amino Transferase* 21 U/L (12-35); Blood Urea Nitrogen* 13 mg/dL (7-30); Calcium* 8.8 mg/dL (8.4-10.6); Glucose* 129 mg/dL (60-115); Total Protein* 7.5 g/dL (6.0-8.3)
[2023-08-12] MEDS: HEPARIN 500 UNIT/5 ML SYRINGE IVF (08:40)
[2023-08-12] MEDS: SODIUM CHLORIDE 0.9 % (FLUSH) 10 ML SYRINGE IVF (08:41)
--- NOTE | 2023-08-13 11:03 | ONC.NURNOTE ---
Noted low sodium from yesterday's lab, called to patient- patient has a history of low sodium he states in the past he has been told to increase the salt in his diet- instructed to do the same
[2023-08-14 04:57] LABS: Carcinoembryonic Antigen <0.6 ng/mL (<=3.8)
[2023-08-28 18:28] LABS: Alpha Fetoprotein Tumor Marker 2 ng/mL (0-9)
--- NOTE | 2023-09-01 09:50 | URNOTE ---
Addendum entered by Kendra Saucedo RN 09/01/23 09:56: Aloxi (J2469) has also been approved. 08/28/2023-09/16/2024. Ref #[id number] Original Note: Per Theo on behalf of [facility] [place],5-Fluorouracil (J9190), Leucovorin (J0640) and Oxaliplatin (J9263) have been approved 08/28/2023-09/16/2024 Ref #[id number]
[2023-09-03] MEDS: SODIUM CHLORIDE 0.9 % (FLUSH) 10 ML SYRINGE IVF (13:16)
[2023-09-03] MEDS: HEPARIN 500 UNIT/5 ML SYRINGE IVF (13:16)
[2023-09-17 08:36] LABS: Basophils Absolute Auto 0.01 K/uL (0.00-0.30); Basophils Percent Auto 0.2 % (0.0-3.0); Eosinophils Absolute Auto 0.17 K/uL (0.00-0.50); Eosinophils Percent Auto 3.5 % (0.0-7.0); Hematocrit 37.1 % (37.0-53.0); Hemoglobin* 12.5 gm/dL (13.5-17.5); Immature Granulocytes Abs Auto 0.01 K/uL (0.00-0.30); Immature Granulocytes Pct Auto 0.2 %; Lymphocytes Percent Auto 10.9 % (20-44); Mean Corpuscular HGB Conc 34 gm/dL (32-36); Mean Corpuscular Hemoglobin 28 pg (26-34); Mean Corpuscular Volume 82 fL (80-100); Monocytes Percent Auto 12.3 % (0.0-11.0); Neutrophils Percent Auto 72.9 % (42.0-72.0); Platelet Count* 245 K/uL (140-440); RDW Coefficient of Variation % 13.1 % (11.5-15.5); White Blood Count* 4.86 K/uL (4.50-11.00)
[2023-09-17 08:42] LABS: Slide Review Reflex No
[2023-09-17 08:57] LABS: Albumin* 4.2 g/dL (3.3-5.0); Chloride* 100 mmol/L (96-114); Sodium* 134 mmol/L (135-149)
[2023-09-17 08:58] LABS: Potassium* 4.4 mmol/L (3.6-5.1)
[2023-09-17 09:00] LABS: Alanine Aminotransferase* 22 U/L (4-50); Alkaline Phosphatase* 88 U/L (40-150); Anion Gap 5 mEq/L (7-15); Aspartate Amino Transferase* 23 U/L (12-35); Bilirubin Total* 1.4 mg/dL (0.1-1.5); Blood Urea Nitrogen* 11 mg/dL (7-30); Carbon Dioxide* 29 mmol/L (20-32); Creatinine* 0.8 mg/dL (0.5-1.5); Estimated Glomerular Filt Rate 101 ml/min; Glucose* 120 mg/dL (60-115); Total Protein* 7.1 g/dL (6.0-8.3)
[2023-09-17 09:01] LABS: Calcium* 8.8 mg/dL (8.4-10.6)
[2023-09-17] MEDS: PALONOSETRON 0.25 MG/5 ML inj IV (09:39)
[2023-09-17] MEDS: SODIUM CHLORIDE 0.9 % (FLUSH) 10 ML SYRINGE IVF (09:39)
[2023-09-17] MEDS: dexAMETHasone 20 MG in 0.9 % SODIUM CHLORIDE 100 ml 100 ML 408 MG IVPB (09:57)
--- NOTE | 2023-09-17 10:21 | ONC.NURNOTE ---
patient has had chemotherapy FOLFOX before reports no recollection of issues with nausea and vomiting reviewed self care at home, calling with concerns, fever or any change that interferes with eating, drinking fluids or doing his normal activities discussed managing a fever, printed handouts for eating well, fatigue management reviewed safe handling of body fluids after treatment X 48 hrs patient with no questions consents/CUCO reviewed and signed
[2023-09-17] MEDS: LEUCOVORIN CALCIUM 100 MG, TUBING SECONDARY 1 EACH in 5 % DEXTROSE 250 ML 250 ML 127.5 MG IV (10:25)
--- NOTE | 2023-09-18 13:00 | PC.NURSE ---
Called pt today to check in after chemo yesterday. Renato states that he is doing great and has no questions or concerns. Pt will be back to [facility] in the morning for pump off.
[2023-09-19 08:30] VITALS: BP 124/82; PULSE 80; RESP 18; TEMP 36.3; O2SAT 96
[2023-09-19] MEDS: SODIUM CHLORIDE 0.9 % (FLUSH) 10 ML SYRINGE IVF (09:09)
[2023-09-19] MEDS: HEPARIN 500 UNIT/5 ML SYRINGE IVF (09:09)
[2023-09-25] MEDS: HEPARIN 500 UNIT/5 ML SYRINGE IVF (13:35)
[2023-09-25] MEDS: SODIUM CHLORIDE 0.9 % (FLUSH) 10 ML SYRINGE IVF (13:35)
--- NOTE | 2023-09-25 13:56 | PC.NURSE ---
Signitera blood sample drawn thought port and given to clinic RN. Patient had no further questions at this time.
[2023-10-01 08:21] VITALS: BP 126/81; PULSE 71; RESP 16; TEMP 36.2; O2SAT 93
[2023-10-01 08:44] LABS: Basophils Percent Auto 0.7 % (0.0-3.0); Eosinophils Percent Auto 4.5 % (0.0-7.0); Hematocrit 37.4 % (37.0-53.0); Hemoglobin* 12.7 gm/dL (13.5-17.5); Immature Granulocytes Pct Auto 0.7 %; Lymphocytes Percent Auto 14.6 % (20-44); Mean Corpuscular HGB Conc 34 gm/dL (32-36); Mean Corpuscular Hemoglobin 28 pg (26-34); Mean Corpuscular Volume 82 fL (80-100); Monocytes Percent Auto 16.7 % (0.0-11.0); Neutrophils Percent Auto 62.8 % (42.0-72.0); Platelet Count* 231 K/uL (140-440); RDW Coefficient of Variation % 13.6 % (11.5-15.5); Red Blood Count 4.59 m/uL (4.30-5.90); White Blood Count* 4.26 K/uL (4.50-11.00)
[2023-10-01 08:48] LABS: Slide Review Reflex No
[2023-10-01 08:59] LABS: Albumin* 4.3 g/dL (3.3-5.0); Chloride* 100 mmol/L (96-114); Potassium* 4.5 mmol/L (3.6-5.1); Sodium* 130 mmol/L (135-149)
[2023-10-01 09:01] LABS: Bilirubin Total* 1.9 mg/dL (0.1-1.5); Creatinine* 0.9 mg/dL (0.5-1.5); Estimated Glomerular Filt Rate 98 ml/min
[2023-10-01 09:02] LABS: Alanine Aminotransferase* 23 U/L (4-50); Alkaline Phosphatase* 96 U/L (40-150); Anion Gap 6 mEq/L (7-15); Aspartate Amino Transferase* 24 U/L (12-35); Blood Urea Nitrogen* 25 mg/dL (7-30); Calcium* 9.2 mg/dL (8.4-10.6); Carbon Dioxide* 24 mmol/L (20-32); Glucose* 136 mg/dL (60-115); Total Protein* 7.5 g/dL (6.0-8.3)
[2023-10-01] MEDS: SODIUM CHLORIDE 0.9 % (FLUSH) 10 ML SYRINGE IVF (09:25)
[2023-10-01] MEDS: PALONOSETRON 0.25 MG/5 ML inj IV (09:41)
[2023-10-01] MEDS: 5 % DEXTROSE 250 ML IV (09:41)
[2023-10-01] MEDS: dexAMETHasone 20 MG in 0.9 % SODIUM CHLORIDE 100 ml 100 ML 420 MG IVPB (09:41)
[2023-10-01] MEDS: LEUCOVORIN CALCIUM 100 MG, TUBING SECONDARY 1 EACH in 5 % DEXTROSE 250 ML 250 ML 127.5 MG IV (10:04)
[2023-10-03 09:46] VITALS: BP 106/68; PULSE 87; RESP 16; TEMP 35.9; O2SAT 96
[2023-10-03] MEDS: HEPARIN 500 UNIT/5 ML SYRINGE IVF (09:54)
[2023-10-03] MEDS: SODIUM CHLORIDE 0.9 % (FLUSH) 10 ML SYRINGE IVF (09:54)
== END 2023-10-04 23:59 | disposition home or self-care (01) ==
LOC: CCIC 13:00
PROVIDERS: Clinical Nurse Specialist; Internal Medicine Medical Oncology; PCP Family Medicine; Referring Provider Family Medicine; Visit Provider Internal Medicine Hematology & Oncology
DX: C19 Malignant neoplasm of rectosigmoid junction (principal); Z93.3 Colostomy status
CPT/HCPCS: 36415; 36591; 80053; 82105; 82378; 85025; 96368; 96376; 96413; 96415; 96416; 99211; 99212; 99214; 99215; G0463; J0640; J1100; J1642; J2469; J7050; J9190; J9263

== ENCOUNTER 2023-10-30 11:00 | Outpatient (RCR) | payer BC, SELFPAY ==
[2023-10-15 09:10] LABS: Basophils Percent Auto 0.5 % (0.0-3.0); Eosinophils Percent Auto 3.9 % (0.0-7.0); Hematocrit 36.9 % (37.0-53.0); Hemoglobin* 12.6 gm/dL (13.5-17.5); Immature Granulocytes Pct Auto 0.8 %; Lymphocytes Percent Auto 14.5 % (20-44); Mean Corpuscular HGB Conc 34 gm/dL (32-36); Mean Corpuscular Hemoglobin 28 pg (26-34); Mean Corpuscular Volume 82 fL (80-100); Monocytes Percent Auto 20.5 % (0.0-11.0); Neutrophils Percent Auto 59.8 % (42.0-72.0); Platelet Count* 162 K/uL (140-440); RDW Coefficient of Variation % 14.2 % (11.5-15.5); White Blood Count* 3.86 K/uL (4.50-11.00)
[2023-10-15 09:12] LABS: Slide Review Reflex No
[2023-10-15 09:34] LABS: Albumin* 4.1 g/dL (3.3-5.0); Chloride* 99 mmol/L (96-114)
[2023-10-15 09:35] LABS: Potassium* 4.2 mmol/L (3.6-5.1); Sodium* 132 mmol/L (135-149)
[2023-10-15 09:37] LABS: Anion Gap 9 mEq/L (7-15); Aspartate Amino Transferase* 32 U/L (12-35); Bilirubin Total* 1.7 mg/dL (0.1-1.5); Carbon Dioxide* 24 mmol/L (20-32); Creatinine* 0.7 mg/dL (0.5-1.5); Estimated Glomerular Filt Rate 105 ml/min; Total Protein* 7.4 g/dL (6.0-8.3)
[2023-10-15 09:38] LABS: Alanine Aminotransferase* 37 U/L (4-50); Alkaline Phosphatase* 87 U/L (40-150); Blood Urea Nitrogen* 13 mg/dL (7-30); Calcium* 9.1 mg/dL (8.4-10.6); Glucose* 131 mg/dL (60-115)
[2023-10-15] MEDS: PALONOSETRON 0.25 MG/5 ML inj IV (10:22)
[2023-10-15] MEDS: dexAMETHasone 20 MG in 0.9 % SODIUM CHLORIDE 100 ml 100 ML 408 MG IVPB (10:22)
[2023-10-15] MEDS: LEUCOVORIN CALCIUM 100 MG, TUBING SECONDARY 1 EACH in 5 % DEXTROSE 250 ML 250 ML 127.5 MG IV (10:47)
[2023-10-17 10:39] VITALS: BP 111/74; PULSE 80; RESP 16; TEMP 35.3; O2SAT 97
[2023-10-28 08:55] LABS: Basophils Percent Auto 0.3 % (0.0-3.0); Eosinophils Percent Auto 3.7 % (0.0-7.0); Hemoglobin* 12.4 gm/dL (13.5-17.5); Immature Granulocytes Pct Auto 0.9 %; Lymphocytes Percent Auto 15.2 % (20-44); Mean Corpuscular HGB Conc 34 gm/dL (32-36); Mean Corpuscular Hemoglobin 28 pg (26-34); Mean Corpuscular Volume 82 fL (80-100); Monocytes Percent Auto 23.6 % (0.0-11.0); Neutrophils Percent Auto 56.3 % (42.0-72.0); Platelet Count* 133 K/uL (140-440); RDW Coefficient of Variation % 14.7 % (11.5-15.5); Red Blood Count 4.37 m/uL (4.30-5.90); White Blood Count* 3.22 K/uL (4.50-11.00)
[2023-10-28 08:56] LABS: Slide Review Reflex No
[2023-10-28 09:04] VITALS: BP 123/81; PULSE 73; RESP 16; TEMP 36.6; O2SAT 95
[2023-10-28 09:15] LABS: Albumin* 3.9 g/dL (3.3-5.0); Chloride* 100 mmol/L (96-114); Potassium* 4.3 mmol/L (3.6-5.1); Sodium* 131 mmol/L (135-149)
[2023-10-28 09:17] LABS: Bilirubin Total* 1.5 mg/dL (0.1-1.5); Creatinine* 0.7 mg/dL (0.5-1.5); Estimated Glomerular Filt Rate 105 ml/min
[2023-10-28 09:18] LABS: Alanine Aminotransferase* 39 U/L (4-50); Alkaline Phosphatase* 92 U/L (40-150); Anion Gap 5 mEq/L (7-15); Aspartate Amino Transferase* 33 U/L (12-35); Blood Urea Nitrogen* 11 mg/dL (7-30); Calcium* 8.9 mg/dL (8.4-10.6); Carbon Dioxide* 26 mmol/L (20-32); Glucose* 139 mg/dL (60-115)
[2023-10-28] MEDS: PALONOSETRON 0.25 MG/5 ML inj IV (10:08)
[2023-10-28] MEDS: dexAMETHasone 20 MG in 0.9 % SODIUM CHLORIDE 100 ml 100 ML 408 MG IVPB (10:08)
[2023-10-28] MEDS: LEUCOVORIN CALCIUM 100 MG, TUBING SECONDARY 1 EACH in 5 % DEXTROSE 250 ML 250 ML 127.5 MG IV (10:48)
--- NOTE | 2023-10-28 14:50 | ONC.NURNOTE ---
Patient stated when he gets his Oxaliplatin about 15 minutes into it he gets itchy and this has been going on for last few infusions. Did state that it goes away and told patient maybe we could give him some Benadryl prior to infusion next time but he stated it goes away quickly. Examined skin and noticed no rash but let patient know this could be a drug reaction. Will need to monitor patient at beginning when this occurs to see if rash present
[2023-10-28] MEDS: 5 % DEXTROSE 250 ML IV (15:13)
[2023-10-28] MEDS: SODIUM CHLORIDE 0.9 % (FLUSH) 10 ML SYRINGE IVF (15:14)
[2023-10-30 12:26] VITALS: BP 129/81; PULSE 83; RESP 16; TEMP 36; O2SAT 95
--- NOTE | 2023-11-04 16:24 | ONC.NURNOTE ---
Patient instructed to salt foods and increase his dietary sodium
== END 2024-04-12 23:59 | disposition home or self-care (01) ==
LOC: CCIC 11:00
PROVIDERS: PCP Family Medicine; Referring Provider Family Medicine; Visit Provider Internal Medicine Hematology & Oncology
DX: C19 Malignant neoplasm of rectosigmoid junction (principal); Z93.3 Colostomy status; C20 Malignant neoplasm of rectum
CPT/HCPCS: 36415; 36591; 80053; 85025; 96368; 96376; 96413; 96415; 96416; 99211; 99215; G0463; J0640; J1100; J2469; J7050; J9190; J9263

== ENCOUNTER 2025-01-14 13:30 | Outpatient (RCR) | payer BC, SELFPAY ==
[2024-11-10 14:44] LABS: Hematocrit 39.8 % (37.0-53.0); Hemoglobin* 13.6 gm/dL (13.5-17.5); Immature Granulocytes Abs Auto 0.04 K/uL (0.00-0.30); Immature Granulocytes Pct Auto 0.6 %; Mean Corpuscular HGB Conc 34 gm/dL (32-36); Mean Corpuscular Hemoglobin 29 pg (26-34); Mean Corpuscular Volume 84 fL (80-100); RDW Coefficient of Variation % 13.0 % (11.5-15.5); Red Blood Count 4.75 m/uL (4.30-5.90); White Blood Count* 6.32 K/uL (4.50-11.00)
[2024-11-10 15:02] LABS: Albumin* 4.7 g/dL (3.3-5.0); Chloride* 99 mmol/L (96-114); Potassium* 4.3 mmol/L (3.6-5.1); Sodium* 134 mmol/L (135-149)
[2024-11-10 15:05] LABS: Alanine Aminotransferase* 32 U/L (4-50); Alkaline Phosphatase* 84 U/L (40-150); Anion Gap 8 mEq/L (7-15); Aspartate Amino Transferase* 31 U/L (12-35); Bilirubin Total* 1.5 mg/dL (0.1-1.5); Blood Urea Nitrogen* 9 mg/dL (7-30); Calcium* 9.3 mg/dL (8.4-10.6); Carbon Dioxide* 27 mmol/L (20-32); Creatinine* 0.7 mg/dL (0.5-1.5); Est. Creatinine Clearance* 87.67; Estimated Glomerular Filt Rate 105 ml/min; Glucose* 92 mg/dL (60-115); Lymphocytes Absolute Auto 1.00 K/uL (0.90-2.90); Slide Review Reflex No; Total Protein* 7.5 g/dL (6.0-8.3)
[2024-11-10 15:31] LABS: Protein Creatinine Ratio Urine 0.09 (0-0.19)
--- NOTE | 2024-11-15 14:44 | URNOTE ---
Fluorouracil (J9190), Irinotecan (J9206), Leucovorin (J0640) and Atropine (J0461) do not require prior authorizaiton per [employer]. Zirabev (Q5118) has been approved, 600mg every 14 days for 13 doses. November 16, 2024-05/14/2025 Ref #[id number] Fulphila (Q5108) has been approved, 6mg every 14 days for 9 doses. 11/16/2024-03/15/2025 REf#[id number] Aloxi (j2469) has been approved 250mcg every 14 days for 13 doses. 11/16/2024-05/14/2025 Ref #[id number]
[2024-11-16 08:51] VITALS: BP 108/75; PULSE 96; RESP 16; TEMP 36.7; O2SAT 96
[2024-11-16] MEDS: SODIUM CHLORIDE 0.9 % (FLUSH) 10 ML SYRINGE IVF ×2 (10:16→14:41)
[2024-11-16] MEDS: TUBING SECONDARY IVPB (10:19)
[2024-11-16] MEDS: BEVACIZUMAB BVZR IVPB (10:19)
[2024-11-16] MEDS: [UNRECOGNIZED DRUG - OTHER] IVPB (10:19)
[2024-11-16] MEDS: dexAMETHasone 20 MG in 0.9 % SODIUM CHLORIDE 100 ml 100 ML 306 MG IVPB (12:08)
[2024-11-16] MEDS: LEUCOVORIN CALCIUM 100 MG, TUBING SECONDARY 1 EACH in 5 % DEXTROSE 250 ML 250 ML 170 MG IV (12:36)
[2024-11-16] MEDS: ATROPINE 0.4 mg/ml IV (12:36)
[2024-11-16] MEDS: TUBING PRIMARY IV (12:37)
[2024-11-16] MEDS: DEXTROSE 5% IV (12:37)
[2024-11-16] MEDS: IRINOTECAN IV (12:37)
[2024-11-16] MEDS: CADD MED CASSETTE RESERVOIR IV (14:23)
[2024-11-16] MEDS: FLUOROURACIL IV (14:23)
--- NOTE | 2024-11-17 15:51 | ONC.NURNOTE ---
Called patient to check in after 1st treatment yesterday. Patient reports he is feeling good. No issues with the pump. He denies any questions or concerns at this time. Confirmed Pump DC appt on 12:30 pm tomorrow. Advised patient to call if he needed anything before than. He was agreeable to the plan.
[2024-11-18] MEDS: HEPARIN 500 UNIT/5 ML SYRINGE IVF (12:39)
[2024-11-18] MEDS: SODIUM CHLORIDE 0.9 % (FLUSH) 10 ML SYRINGE IVF (12:39)
[2024-11-18 12:45] VITALS: BP 106/75; PULSE 85; RESP 16; TEMP 35.8; O2SAT 96
[2024-11-19 13:05] VITALS: BP 115/77; PULSE 92; RESP 18; TEMP 36.8; O2SAT 97
[2024-11-19] MEDS: PEGFILGRASTIM-JMDB (Fulphila) 6 MG/0.6 ML SUBCUT (13:14)
[2024-11-30] MEDS: SODIUM CHLORIDE 0.9 % (FLUSH) 10 ML SYRINGE IVF ×2 (08:35→14:03)
[2024-11-30 08:36] LABS: Hematocrit 36.6 % (37.0-53.0); Hemoglobin* 12.6 gm/dL (13.5-17.5); Immature Granulocytes Abs Auto 0.73 K/uL (0.00-0.30); Immature Granulocytes Pct Auto 10.7 %; Lymphocytes Absolute Auto 0.90 K/uL (0.90-2.90); Mean Corpuscular HGB Conc 34 gm/dL (32-36); Mean Corpuscular Hemoglobin 29 pg (26-34); Mean Corpuscular Volume 83 fL (80-100); RDW Coefficient of Variation % 13.5 % (11.5-15.5); Red Blood Count 4.39 m/uL (4.30-5.90); White Blood Count* 6.81 K/uL (4.50-11.00)
[2024-11-30 08:48] LABS: Slide Review Reflex No
[2024-11-30 09:10] LABS: Albumin* 4.1 g/dL (3.3-5.0); Chloride* 98 mmol/L (96-114); Potassium* 4.4 mmol/L (3.6-5.1); Sodium* 132 mmol/L (135-149)
[2024-11-30 09:12] LABS: Blood Urea Nitrogen* 14 mg/dL (7-30); Creatinine* 0.8 mg/dL (0.5-1.5); Est. Creatinine Clearance* 85.14; Estimated Glomerular Filt Rate 101 ml/min
[2024-11-30 09:13] LABS: Alanine Aminotransferase* 30 U/L (4-50); Alkaline Phosphatase* 90 U/L (40-150); Anion Gap 9 mEq/L (7-15); Aspartate Amino Transferase* 25 U/L (12-35); Bilirubin Total* 1.1 mg/dL (0.1-1.5); Calcium* 9.1 mg/dL (8.4-10.6); Carbon Dioxide* 25 mmol/L (20-32); Glucose* 179 mg/dL (60-115); Total Protein* 6.9 g/dL (6.0-8.3)
[2024-11-30 09:55] LABS: Protein Creatinine Ratio Urine 0.04 (0-0.19)
[2024-11-30] MEDS: dexAMETHasone 20 MG in 0.9 % SODIUM CHLORIDE 100 ml 100 ML 408 MG IVPB (10:47)
[2024-11-30] MEDS: TUBING SECONDARY IVPB (11:08)
[2024-11-30] MEDS: BEVACIZUMAB BVZR IVPB (11:08)
[2024-11-30] MEDS: [UNRECOGNIZED DRUG - OTHER] IVPB (11:08)
[2024-11-30] MEDS: TUBING PRIMARY IV (12:19)
[2024-11-30] MEDS: LEUCOVORIN CALCIUM 100 MG, TUBING SECONDARY 1 EACH in 5 % DEXTROSE 250 ML 250 ML 170 MG IV (12:19)
[2024-11-30] MEDS: ATROPINE 0.4 mg/ml IV (12:19)
[2024-11-30] MEDS: DEXTROSE 5% IV (12:19)
[2024-11-30] MEDS: IRINOTECAN IV (12:19)
[2024-11-30] MEDS: CADD MED CASSETTE RESERVOIR IV (14:04)
[2024-11-30] MEDS: FLUOROURACIL IV (14:04)
[2024-12-02 12:47] VITALS: BP 123/77; PULSE 78; RESP 20; TEMP 36; O2SAT 95
[2024-12-02] MEDS: HEPARIN 500 UNIT/5 ML SYRINGE IVF (12:55)
[2024-12-02] MEDS: SODIUM CHLORIDE 0.9 % (FLUSH) 10 ML SYRINGE IVF (12:55)
[2024-12-03] MEDS: PEGFILGRASTIM-JMDB (Fulphila) 6 MG/0.6 ML SUBCUT (13:55)
[2024-12-13 10:07] LABS: Hematocrit 36.9 % (37.0-53.0); Hemoglobin* 12.8 gm/dL (13.5-17.5); Immature Granulocytes Pct Auto 12.8 %; Mean Corpuscular HGB Conc 35 gm/dL (32-36); Mean Corpuscular Hemoglobin 29 pg (26-34); Mean Corpuscular Volume 83 fL (80-100); RDW Coefficient of Variation % 14.3 % (11.5-15.5); Red Blood Count 4.43 m/uL (4.30-5.90); White Blood Count* 11.85 K/uL (4.50-11.00)
[2024-12-13 10:15] LABS: Albumin* 4.2 g/dL (3.3-5.0); Chloride* 97 mmol/L (96-114); Immature Granulocytes Abs Auto 1.50 K/uL (0.00-0.30); Lymphocytes Absolute Auto 1.10 K/uL (0.90-2.90); Slide Review Reflex No
[2024-12-13 10:16] LABS: Potassium* 4.5 mmol/L (3.6-5.1); Sodium* 133 mmol/L (135-149)
[2024-12-13 10:18] LABS: Blood Urea Nitrogen* 13 mg/dL (7-30); Creatinine* 0.8 mg/dL (0.5-1.5); Est. Creatinine Clearance* 85.14; Estimated Glomerular Filt Rate 101 ml/min
[2024-12-13 10:19] LABS: Alanine Aminotransferase* 30 U/L (4-50); Alkaline Phosphatase* 117 U/L (40-150); Anion Gap 11 mEq/L (7-15); Aspartate Amino Transferase* 26 U/L (12-35); Bilirubin Total* 1.1 mg/dL (0.1-1.5); Calcium* 9.0 mg/dL (8.4-10.6); Carbon Dioxide* 25 mmol/L (20-32); Glucose* 217 mg/dL (60-115); Total Protein* 7.0 g/dL (6.0-8.3)
[2024-12-13 12:03] LABS: Protein Creatinine Ratio Urine 0.10 (0-0.19)
[2024-12-13] MEDS: SODIUM CHLORIDE 0.9 % (FLUSH) 10 ML SYRINGE IVF ×2 (12:36→15:22)
[2024-12-13] MEDS: [UNRECOGNIZED DRUG - OTHER] IVPB (12:42)
[2024-12-13] MEDS: BEVACIZUMAB BVZR IVPB (12:42)
[2024-12-13] MEDS: TUBING SECONDARY IVPB (12:42)
[2024-12-13] MEDS: dexAMETHasone 20 MG in 0.9 % SODIUM CHLORIDE 100 ml 100 ML 408 MG IVPB (13:19)
[2024-12-13] MEDS: ATROPINE 0.4 mg/ml IV (13:39)
[2024-12-13] MEDS: DEXTROSE 5% IV (13:42)
[2024-12-13] MEDS: IRINOTECAN IV (13:42)
[2024-12-13] MEDS: LEUCOVORIN CALCIUM 100 MG, TUBING SECONDARY 1 EACH in 5 % DEXTROSE 250 ML 250 ML 170 MG IV (13:42)
[2024-12-13] MEDS: TUBING PRIMARY IV (13:42)
[2024-12-13] MEDS: CADD MED CASSETTE RESERVOIR IV (15:24)
[2024-12-13] MEDS: FLUOROURACIL IV (15:24)
[2024-12-15 14:25] VITALS: BP 130/81; PULSE 95; RESP 18; TEMP 36.2; O2SAT 95
[2024-12-16 14:48] VITALS: BP 124/75; PULSE 92; RESP 18; TEMP 35.6; O2SAT 95
[2024-12-16] MEDS: PEGFILGRASTIM-JMDB (Fulphila) 6 MG/0.6 ML SUBCUT (14:51)
[2024-12-27 08:43] LABS: Hematocrit 33.6 % (37.0-53.0); Hemoglobin* 11.5 gm/dL (13.5-17.5); Immature Granulocytes Abs Auto 0.41 K/uL (0.00-0.30); Immature Granulocytes Pct Auto 5.0 %; Mean Corpuscular HGB Conc 34 gm/dL (32-36); Mean Corpuscular Hemoglobin 29 pg (26-34); Mean Corpuscular Volume 85 fL (80-100); RDW Coefficient of Variation % 15.6 % (11.5-15.5); Red Blood Count 3.97 m/uL (4.30-5.90); White Blood Count* 8.14 K/uL (4.50-11.00)
[2024-12-27 08:47] LABS: Lymphocytes Absolute Auto 0.80 K/uL (0.90-2.90); Slide Review Reflex No
[2024-12-27 09:11] LABS: Protein Creatinine Ratio Urine 0.03 (0-0.19)
[2024-12-27 09:13] LABS: Chloride* 104 mmol/L (96-114)
[2024-12-27 09:14] LABS: Albumin* 3.8 g/dL (3.3-5.0); Potassium* 3.7 mmol/L (3.6-5.1); Sodium* 135 mmol/L (135-149)
[2024-12-27 09:16] LABS: Blood Urea Nitrogen* 15 mg/dL (7-30); Creatinine* 0.8 mg/dL (0.5-1.5); Est. Creatinine Clearance* 87.67; Estimated Glomerular Filt Rate 101 ml/min
[2024-12-27 09:17] LABS: Alanine Aminotransferase* 27 U/L (4-50); Alkaline Phosphatase* 113 U/L (40-150); Anion Gap 8 mEq/L (7-15); Aspartate Amino Transferase* 26 U/L (12-35); Bilirubin Total* 1.3 mg/dL (0.1-1.5); Calcium* 8.5 mg/dL (8.4-10.6); Carbon Dioxide* 23 mmol/L (20-32); Glucose* 179 mg/dL (60-115); Total Protein* 6.4 g/dL (6.0-8.3)
[2024-12-27] MEDS: TUBING SECONDARY IVPB (10:31)
[2024-12-27] MEDS: [UNRECOGNIZED DRUG - OTHER] IVPB (10:31)
[2024-12-27] MEDS: BEVACIZUMAB BVZR IVPB (10:31)
[2024-12-27] MEDS: dexAMETHasone 20 MG in 0.9 % SODIUM CHLORIDE 100 ml 100 ML 408 MG IVPB (11:06)
[2024-12-27] MEDS: SODIUM CHLORIDE 0.9 % (FLUSH) 10 ML SYRINGE IVF (11:09)
[2024-12-27] MEDS: ATROPINE 0.4 mg/ml IV (11:26)
[2024-12-27] MEDS: TUBING PRIMARY IV (11:29)
[2024-12-27] MEDS: IRINOTECAN IV (11:29)
[2024-12-27] MEDS: DEXTROSE 5% IV (11:29)
[2024-12-27] MEDS: LEUCOVORIN CALCIUM 100 MG, TUBING SECONDARY 1 EACH in 5 % DEXTROSE 250 ML 250 ML 170 MG IV (11:35)
[2024-12-27] MEDS: FLUOROURACIL IV (13:31)
[2024-12-27] MEDS: CADD MED CASSETTE RESERVOIR IV (13:31)
[2024-12-30 15:14] VITALS: BP 104/71; PULSE 98; RESP 16; TEMP 36.2; O2SAT 96
[2024-12-30] MEDS: PEGFILGRASTIM-JMDB (Fulphila) 6 MG/0.6 ML SUBCUT (15:25)
[2025-01-12 08:29] VITALS: BP 137/82; PULSE 80; TEMP 36; O2SAT 98
[2025-01-12 08:52] LABS: Hematocrit 37.0 % (37.0-53.0); Hemoglobin* 12.5 gm/dL (13.5-17.5); Immature Granulocytes Pct Auto 4.3 %; Mean Corpuscular HGB Conc 34 gm/dL (32-36); Mean Corpuscular Hemoglobin 29 pg (26-34); Mean Corpuscular Volume 86 fL (80-100); RDW Coefficient of Variation % 16.5 % (11.5-15.5); Red Blood Count 4.30 m/uL (4.30-5.90); White Blood Count* 11.28 K/uL (4.50-11.00)
[2025-01-12 08:53] LABS: Immature Granulocytes Abs Auto 0.50 K/uL (0.00-0.30); Lymphocytes Absolute Auto 0.90 K/uL (0.90-2.90); Slide Review Reflex No
[2025-01-12 09:03] LABS: Protein Creatinine Ratio Urine 0.05 (0-0.19)
[2025-01-12 09:05] LABS: Albumin* 4.2 g/dL (3.3-5.0); Chloride* 98 mmol/L (96-114); Potassium* 4.8 mmol/L (3.6-5.1); Sodium* 132 mmol/L (135-149)
[2025-01-12 09:08] LABS: Alanine Aminotransferase* 27 U/L (4-50); Alkaline Phosphatase* 107 U/L (40-150); Anion Gap 8 mEq/L (7-15); Aspartate Amino Transferase* 26 U/L (12-35); Bilirubin Total* 1.6 mg/dL (0.1-1.5); Blood Urea Nitrogen* 13 mg/dL (7-30); Carbon Dioxide* 26 mmol/L (20-32); Creatinine* 0.8 mg/dL (0.5-1.5); Est. Creatinine Clearance* 87.67; Estimated Glomerular Filt Rate 101 ml/min; Total Protein* 7.0 g/dL (6.0-8.3)
[2025-01-12 09:09] LABS: Calcium* 9.3 mg/dL (8.4-10.6); Glucose* 137 mg/dL (60-115)
[2025-01-12] MEDS: SODIUM CHLORIDE 0.9 % (FLUSH) 10 ML SYRINGE IVF ×2 (09:24→12:46)
[2025-01-12] MEDS: TUBING SECONDARY IVPB (09:49)
[2025-01-12] MEDS: BEVACIZUMAB BVZR IVPB (09:49)
[2025-01-12] MEDS: [UNRECOGNIZED DRUG - OTHER] IVPB (09:49)
[2025-01-12] MEDS: dexAMETHasone 20 MG in 0.9 % SODIUM CHLORIDE 100 ml 100 ML 408 MG IVPB (10:28)
[2025-01-12] MEDS: IRINOTECAN IV (10:56)
[2025-01-12] MEDS: ATROPINE 0.4 mg/ml IV (10:56)
[2025-01-12] MEDS: TUBING PRIMARY IV (10:56)
[2025-01-12] MEDS: DEXTROSE 5% IV (10:56)
[2025-01-12] MEDS: LEUCOVORIN CALCIUM 100 MG, TUBING SECONDARY 1 EACH in 5 % DEXTROSE 250 ML 250 ML 170 MG IV (10:56)
[2025-01-12] MEDS: FLUOROURACIL IV (12:37)
[2025-01-12] MEDS: CADD MED CASSETTE RESERVOIR IV (12:37)
[2025-01-14 11:38] VITALS: BP 114/77; PULSE 93; RESP 16; TEMP 36.9; O2SAT 94
[2025-01-14] MEDS: PEGFILGRASTIM-JMDB (Fulphila) 6 MG/0.6 ML SUBCUT (11:58)
[2025-01-14] MEDS: SODIUM CHLORIDE 0.9 % (FLUSH) 10 ML SYRINGE IVF (12:03)
[2025-01-14] MEDS: HEPARIN 500 UNIT/5 ML SYRINGE IVF ×2 (12:09→12:11)
--- NOTE | 2025-01-20 14:08 | ONC.NURNOTE ---
Addendum entered and electronically signed by Clair Escobedo APRN 01/20/25 15:55: Shared question with oncology at [facility]. Dr. Guerra confirmed OK to hold treatment for 2 weeks to accommodate restaging and CRS+Onc at [place] on 01/26/25 and colonoscopy on 02/02/25. Addendum entered by Lovely Patrick RN 01/20/25 15:00: Also of note, RN confimed with [facility] surgery RN that [facility] does NOT have a MRI scheduled at this time. Addendum entered by Lovely Patrick RN 01/20/25 14:52: Pt called back and states that he was instructed by the [facility] oncology team to delay his chemo by 1 week. Of note, pt has a colonoscopy on 02/02 which is a Friday in the middle of next week. Will attempt to communicate with the [facility] team to clear all of this up. Original Note: Pt called [facility] on 01/19/2025 to discuss his schedule next week. Pt is currently scheduled for chemo on 01/25/2025 and pump off on 01/27/2025. Pt has scans, labs, and MD appts in [place] on 01/26/2025. He initially thought he also had a MRI scheduled which would be contraindicated with his chemo pump. After looking at his schedule closer, he did not see anything about a MRI. [facility] also as labs and MD appt. RN asked pt to call [facility] to confirm that there is NOT a MRI ordered and to ask if ok to do labs/CT scan with a peripheral IV since he will have his pump on. Pt called back late on 01/19 stating that he hadn't heard back from [facility]. Currently scheduled appointments: 01/25 - chemo at [facility] 01/26 - CT, MD luis at [facility] 01/27 - pump off at [facility] 01/28 - colorectal surgery consult at [facility] AND injection appt at [facility] 02/02 - colonoscopy at [facility]
--- NOTE | 2025-03-11 13:02 | ONC.NURNOTE ---
patient stopped by today to get clarification on why [facility] is calling him (numerous times) to schedule his lab work He schedules his labs with [facility] this question is routed to Nancy LEBLANC
== END 2025-05-09 23:59 | disposition home or self-care (01) ==
LOC: CCIC 13:30
PROVIDERS: Clinical Nurse Specialist; PCP Family Medicine; Referring Provider Family Medicine; Visit Provider Internal Medicine Hematology & Oncology
DX: C18.9 Malignant neoplasm of colon, unspecified (principal); C78.7 Secondary malignant neoplasm of liver and intrahepatic bile duct; G62.0 Drug-induced polyneuropathy; T45.1X5A Adverse effect of antineoplastic and immunosuppressive drugs, initial encounter
CPT/HCPCS: 36415; 36591; 80053; 82570; 84156; 85025; 96367; 96368; 96372; 96375; 96413; 96415; 96416; 96417; 99211; 99214; 99215; G0463; J0461; J0640; J1100; J1642; J2469; J7030; J7050; J9190; J9206; Q5108; Q5118